=== PATIENT | female | born 1980 | race Caucasian/White ===

== ENCOUNTER 2016-09-12 17:04 | Emergency (ER) | payer OTHER ==
--- NOTE | 2016-09-12 18:48 | ED ---
General Adult HPI - General Chief complaint: Upper Respiratory Infection Stated complaint: congestion Time Seen by Provider: 09/12/16 18:26 Source: patient, RN notes reviewed Mode of arrival: ambulatory Limitations: no limitations - History of Present Illness Initial comments: This is a 36-year-old female who presents with cough, congestion and mild nausea Tuesday. Patient states she did have a fever of approximately 100 yesterday but denies any fever today. Patient denies any vomiting but admits to some nausea. Patient has had diminished appetite but has been keeping up with fluids. Patient states her cough is dry. Patient also admits to headache , but denies sore throat. Patient also admits to some right-sided ear pain 2 days. Patient also complains of feeling dizzy which she describes as "off balance". Patient states she has a history of anemia from endometriosis 5 years ago and her symptoms today feel similar to her symptoms when she was diagnosed with anemia. Patient denies any chance of being as she has had a hysterectomy. Patient denies any hematochezia, hematemesis, hematuria, dysuria. Patient states she's had one episode of diarrhea Tuesday and has not recurred. Patient also admits to some "tingling" in the left arm and around her lips. Patient also admits to feeling "weak" in the left arm but she has not had any trouble using the left upper extremity and has not had any trouble lifting objects. Patient states this has never happened to her before. Patient is not on any medication and denies any medical problems. Patient denies any recent shortness breath, chest pain, abdominal pain, radicular pain , neck pain, neck stiffness, back pain, numbness, or visual changes, or any other complaints. - Related Data Home Medications Medication Instructions Recorded Confirmed Zzz-Quil 5 ml PO HS PRN 09/12/16 09/12/16 Allergies Allergy/AdvReac Type Severity Reaction Status Date / Time fluconazole [From Diflucan] Allergy Rash/Hives Verified 09/12/16 18:54 Review of Systems ROS Statement: Those systems with pertinent positive or pertinent negative responses have been documented in the HPI. ROS Other: All systems not noted in ROS Statement are negative. Past Medical History Additional Past Medical History / Comment(s): anemia History of Any Multi-Drug Resistant Organisms: None Reported Past Surgical History: Hysterectomy Past Psychological History: No Psychological Hx Reported Smoking Status: Current every day smoker Past Alcohol Use History: None Reported Past Drug Use History: None Reported General Exam - General Exam Comments Initial Comments: General: The patient is awake and alert, in no distress, and does not appear acutely ill. Eye: Pupils are equal, round and reactive to light, extra-ocular movements are intact. No nystagmus. There is normal conjunctiva bilaterally. No signs of icterus. Ears: TMs pearly with intact cone of light bilaterally. Normal external ear canals. Nose: Nasal turbinates mildly erythematous but clear of drainage. Mouth and throat: There are moist mucous membranes. Neck: The neck is supple, there is no tenderness or JVD. Cardiovascular: There is a regular rate and rhythm. No murmur, rub or gallop is appreciated. Respiratory: Lungs are clear to auscultation, respirations are non-labored, breath sounds are equal. No wheezes, stridor, rales, or rhonchi. Gastrointestinal: Mild generalized discomfort. Soft, non-distended abdomen without masses or organomegaly noted. There is no rebound or guarding present. No CVA tenderness. Bowel sounds are unremarkable. Musculoskeletal: Normal ROM, no tenderness. Strength 5/5. Sensation intact. Radial Pulses equal bilaterally 2+. Capillary refill is normal at less than 2 seconds. Neurological: A&O x 3. CN II-XII intact, There are no obvious motor or sensory deficits. Coordination appears grossly intact. Speech is normal. Finger to nose testing intact. Skin: Skin is warm and dry and no rashes or lesions are noted. Psychiatric: Cooperative, appropriate mood & affect, normal judgment. Limitations: no limitations Course Vital Signs 09/12/16 09/12/16 17:28 20:32 Temperature 98.4 F 99.8 F H Pulse Rate 82 80 Respiratory 16 20 Rate Blood Pressure 108/81 121/56 O2 Sat by Pulse 98 98 Oximetry Medical Decision Making - Medical Decision Making This is a 36 year female presents with cough, congestion, nausea, dizziness 7 days. Patient is afebrile in the EC. On physical exam patient's strength is 5/ 5 in coordination is intact. Patient is neurologically intact. Moist mucous membranes. Clear to auscultation bilaterally. Dry cough present on exam. Patient is afebrile in the EC. Patient is answering all questions appropriately. Chest x-ray was done and reviewed showing: Normal chest. Reportedly Dr. Snider Labs were drawn and reviewed and came back within normal limits. Results are discussed with patient. Patient admits that her upper respiratory conditions have improved. Patient states after receiving fluids the tingling she was feeling in her arm and lips has improved. Discussed that these symptoms can also be related to anxiety and patient does admit to some increased stress from dental procedures in her life lately. Patient also states this feels similar to when she had a pinched nerve in her neck in the past. Patient denies any recent fall however. Discussed return parameters. Discussed close follow-up with her primary care physician or to return to the for any worsening symptoms or for any further concerns. Patient was receptive to this plan and patient will be discharged home. - Lab Data Result diagrams: 09/12/16 19:04 09/12/16 19:04 Lab Results 09/12/16 09/12/16 Range/Units 19:04 19:04 WBC 10.3 (3.8-10.6) k/uL RBC 4.91 (3.80-5.40) m/uL Hgb 15.1 (11.4-16.0) gm/dL Hct 45.0 (34.0-46.0) % MCV 91.6 (80.0-100.0) fL MCH 30.8 (25.0-35.0) pg MCHC 33.7 (31.0-37.0) g/dL RDW 11.9 (11.5-15.5) % Plt Count 198 (150-450) k/uL Neutrophils % 88 % Lymphocytes % 7 % Monocytes % 3 % Eosinophils % 0 % Basophils % 0 % Neutrophils # 9.1 H (1.3-7.7) k/uL Lymphocytes # 0.8 L (1.0-4.8) k/uL Monocytes # 0.3 (0-1.0) k/uL Eosinophils # 0.0 (0-0.7) k/uL Basophils # 0.0 (0-0.2) k/uL Sodium 140 (137-145) mmol/L Potassium 3.9 (3.5-5.1) mmol/L Chloride 106 (98-107) mmol/L Carbon Dioxide 22 (22-30) mmol/L Anion Gap 12 mmol/L BUN 7 (7-17) mg/dL Creatinine 0.60 (0.52-1.04) mg/dL Est GFR (MDRD) Af Amer >60 (>60 ml/min/1.73 sqM) Est GFR (MDRD) Non-Af >60 (>60 ml/min/1.73 sqM) Glucose 99 (74-99) mg/dL Calcium 9.6 (8.4-10.2) mg/dL Total Bilirubin 0.6 (0.2-1.3) mg/dL AST 21 (14-36) U/L ALT 43 (9-52) U/L Alkaline Phosphatase 65 (38-126) U/L Total Protein 6.9 (6.3-8.2) g/dL Albumin 4.5 (3.5-5.0) g/dL Disposition Clinical Impression: Upper respiratory infection, Paresthesia Disposition: HOME SELF-CARE Condition: Good Instructions: Upper Respiratory Infection (ED) Additional Instructions: Please continue to drink plenty of fluids. Please follow-up with family doctor in the next 2 days of symptoms have not improved. Please return to emergency room if the symptoms increase or worsen or for any other concerns. Referrals: Jared Bishop MD [Primary Care Provider] - 1-2 days Time of Disposition: 20:21
[2016-09-12] MEDS ORDERED: SODIUM CHLORIDE 0.9% 500 ML IV ONE (18:49)
--- NOTE | 2016-09-12 18:55 | XR ---
EXAMINATION TYPE: XR chest 2V DATE OF EXAM: 09/12/2016 6:51 PM COMPARISON: NONE HISTORY: Cough. Left arm tingling. TECHNIQUE: Frontal and lateral views of the chest are obtained. FINDINGS: Heart and mediastinum are normal. Lungs are clear. Diaphragm is normal. Bony thorax is int act. IMPRESSION: Normal chest.
[2016-09-12 19:31] LABS: Basophils % (A) 0 %; CH 32.2; CHCM 35.3; Eosinophils % (A) 0 %; HDW 2.54; HGB 15.1 gm/dL (11.4-16.0); Luc # (Auto) 0.07; Luc % (Auto) 1; Lymphocytes # (A) 0.8 k/uL (1.0-4.8); Lymphocytes % (A) 7 %; MCH 30.8 pg (25.0-35.0); MCHC 33.7 g/dL (31.0-37.0); MCV 91.6 fL (80.0-100.0); Mean Platelet Volume 8.5; Monocytes # (A) 0.3 k/uL (0-1.0); Monocytes % (A) 3 %; Neutrophils # (A) 9.1 k/uL (1.3-7.7); Neutrophils % (A) 88 %; RBC 4.91 m/uL (3.80-5.40); RDW 11.9 % (11.5-15.5); WBC 10.3 k/uL (3.8-10.6); WBC (Perox) 10.85
[2016-09-12 20:01] LABS: ALT 43 U/L (9-52); AST 21 U/L (14-36); Alkaline Phosphatase 65 U/L (38-126); Anion Gap 12 mmol/L; Blood Urea Nitrogen 7 mg/dL (7-17); Calcium 9.6 mg/dL (8.4-10.2); Carbon Dioxide 22 mmol/L (22-30); Chloride 106 mmol/L (98-107); Glucose 99 mg/dL (74-99); Non-African American GFR(MDRD) >60 (>60 ml/min/1.73 sqM); Potassium 3.9 mmol/L (3.5-5.1); Sodium 140 mmol/L (137-145); Total Bilirubin 0.6 mg/dL (0.2-1.3); Total Protein 6.9 g/dL (6.3-8.2)
[2016-09-12 20:33] VITALS: BP 121/56; PULSE 80; RESP 20; TEMP 99.8
--- NOTE | 2016-09-29 13:17 | ED ---
Medical Decision Making - Medical Decision Making An EKG was done at 17:41 on 09/12/2016 showing normal sinus rhythm with a ventricular rate of 87 bpm, AK interval of 110, QTC of 447 and QRS duration of 70. No acute ST changes. - Lab Data Result diagrams: 09/12/16 19:04 09/12/16 19:04 Lab Results 09/12/16 09/12/16 Range/Units 19:04 19:04 WBC 10.3 (3.8-10.6) k/uL RBC 4.91 (3.80-5.40) m/uL Hgb 15.1 (11.4-16.0) gm/dL Hct 45.0 (34.0-46.0) % MCV 91.6 (80.0-100.0) fL MCH 30.8 (25.0-35.0) pg MCHC 33.7 (31.0-37.0) g/dL RDW 11.9 (11.5-15.5) % Plt Count 198 (150-450) k/uL Neutrophils % 88 % Lymphocytes % 7 % Monocytes % 3 % Eosinophils % 0 % Basophils % 0 % Neutrophils # 9.1 H (1.3-7.7) k/uL Lymphocytes # 0.8 L (1.0-4.8) k/uL Monocytes # 0.3 (0-1.0) k/uL Eosinophils # 0.0 (0-0.7) k/uL Basophils # 0.0 (0-0.2) k/uL Sodium 140 (137-145) mmol/L Potassium 3.9 (3.5-5.1) mmol/L Chloride 106 (98-107) mmol/L Carbon Dioxide 22 (22-30) mmol/L Anion Gap 12 mmol/L BUN 7 (7-17) mg/dL Creatinine 0.60 (0.52-1.04) mg/dL Est GFR (MDRD) Af Amer >60 (>60 ml/min/1.73 sqM) Est GFR (MDRD) Non-Af >60 (>60 ml/min/1.73 sqM) Glucose 99 (74-99) mg/dL Calcium 9.6 (8.4-10.2) mg/dL Total Bilirubin 0.6 (0.2-1.3) mg/dL AST 21 (14-36) U/L ALT 43 (9-52) U/L Alkaline Phosphatase 65 (38-126) U/L Total Protein 6.9 (6.3-8.2) g/dL Albumin 4.5 (3.5-5.0) g/dL Disposition Clinical Impression: Upper respiratory infection, Paresthesia Disposition: HOME SELF-CARE Condition: Good Instructions: Upper Respiratory Infection (ED) Additional Instructions: Please continue to drink plenty of fluids. Please follow-up with family doctor in the next 2 days of symptoms have not improved. Please return to emergency room if the symptoms increase or worsen or for any other concerns. Referrals: Jared Bishop MD [Primary Care Provider] - 1-2 days
== END 2016-09-12 20:32 | disposition home or self-care (01) ==
LOC: EC 17:04
DX: J06.9 Acute upper respiratory infection, unspecified (principal); R20.2 Paresthesia of skin; R11.0 Nausea; R42 Dizziness and giddiness; Z88.3 Allergy status to other anti-infective agents; F17.200 Nicotine dependence, unspecified, uncomplicated
CPT/HCPCS: 36415; 71020; 80053; 85025; 93005; 99284

== ENCOUNTER → 2016-10-19 | Outpatient (CLI) | payer OTHER ==
--- NOTE | 2016-10-19 22:20 | MR ---
MRI of the brain with and without contrast HISTORY: Headaches. TECHNIQUE: T1-weighted sagittal, T2, FLAIR, and diffusion axial, postcontrast T1 axial and coronal vi ews of the brain are submitted. CONTRAST: 9 mL of MultiHance FINDINGS: There is no evidence of acute ischemia. The ventricles, basal cisterns, and sulci overlying the co nvexities are consistent with the patient's age. There is no mass effect or enhancing mass. Craniocervical junction maintained. Health turcica has a normal appearance. No cerebellopontine angle mass. WHITE MATTER: There are approximately 5 focal areas of abnormal signal seen within the white matter scattered bilat erally. All measure less than 5 mm. No callosal lesions. No lesion or appendicular to the ventricular system. No enhancing lesion. IMPRESSION: 1. No acute intracranial process. 2. Minimal nonspecific white matter changes can be seen with migraine headaches or hypertension. Othe r etiologies including demyelinating process, sarcoidosis, or remote microvascular ischemia not entir dipak excluded. Correlate clinically.
== END | disposition home or self-care (01) ==
LOC: RADMRIMAIN 18:20
PROVIDERS: ATTEND Family Medicine
DX: R90.82 White matter disease, unspecified (principal)
CPT/HCPCS: 70553; A9577

== ENCOUNTER → 2021-12-31 | Outpatient (CLI) | payer BC, OTHER ==
[2021-12-31 14:39] VITALS: BP 106/70; PULSE 85; RESP 18; TEMP 98.7
--- NOTE | 2021-12-31 15:13 | P.CON ---
Consult Note - . Consult date: 12/31/21 Assessment/Plan:: HISTORY OF PRESENT ILLNESS: 41 yr old female as a referral from Dr Nava presents today with chronic & severe cervical pain secondary to disc bulges, spinal stenosis, neuroforaminal narrowing, facet arthopathy and R C7 impingement for evaluation. Pain escalates as high as 9 /10 in intensity, is intermittent, sharp, achy and crampy in character with radiation of pain to the UEs, alternating from L to R. Pain is provoked with overhead reaching. Pain is relieved with medications (Motrin and Tylenol OTC), alternating ice & heat, massage at home, chiropractic treatments which were discontinued by provider due to cervical DDD, elevation of UEs and rest. Past Medical History / Comment(s): anemia Past Surgical History: Hysterectomy Social History: Current every day smoker. Denies ETOH abuse or illicit drug use. Family History: Non contributory All: Fluconazole Meds: See list REVIEW OF ORGAN SYSTEMS: CONSTITUTIONAL: No fevers or chills. No recent weight loss. HEENT: No visual acuity loss, eye pain, difficulties with hearing. No nosebleeds. No difficulty swallowing. RESPIRATORY: Denies any troubles with breathing or dyspnea on exertion. CARDIOVASCULAR: Denies any chest pain, palpitations, or recent heart attacks. GASTROINTESTINAL: Denies fatty food intolerance. Has change in bowel habits and gas bloat. GENITOURINARY: Denies any blood in urine. Has increased urinary frequency. NEUROLOGICAL: + numbness and tingling along the distal extremities. No seizure disorders or headaches. MUSCULOSKELETAL: + back pain SKIN: No skin cancer. No rash. PSYCHIATRIC: Denies current depression or suicidal tho ughts. ENDOCRINE: Denies current thyroid disorders. Denies any blood sugar glucose intolerance. HEME/LYMPHATIC: Denies any lumps and bumps around the neck. History of deep venous thrombosis. ALLERGY/IMMUNOLOGY: No immunoglobulin therapy. No immune deficiencies. BREAST: Denies current breast lumps, pain or nipple discharge. Physical Examinations : Constitutional : Cooperative , not in acute distress . HEENT: Neck supple. No Lymphadenopathy. Normal thyroid size . Eyes no ptosis , no icterus, no photophobia . Hearing intact. Normal oropharynx. No Thrush. Respiratory : Chest clear to auscultations bilaterally. No wheezing. No rhonchi. Cardiovascular : Regular rate and rhythm , S1 / S2. No S3 . No S4. Gastrointestinal : Abdomen soft. No tenderness. Bowel sounds x 4. No organomegaly . Genitourinary : Deferred. Neurologic : Cranial nerve II to XII intact. No focal neurological deficits. Psychiatric : alert & oriented x 3. Matching mood & appropriate affect. Judgment & insight intact. Lymphatic No Lymphadenopathy. Musculoskeletal : Cervical Spine Motor strength in the deltoid and biceps: Normal right side. Normal Left side Motor strength biceps and the wrist extensors: Normal right side . Normal left side Motor strength in the triceps muscle: Normal right side. Normal left side Deep tendon reflexes: Normal at the biceps. Normal at Brachioradialis. Normal at triceps Vertebral body tenderness to palpation Cervical facet loading test: positive bilaterally Spurling test: positive bilaterally Neck distraction test: positive bilaterally Keely sign: positive bilaterally Lumbar spine Motor strength lower extremities ,thigh and legs 5/5 Right side , 5/5 Left side Deep tendon reflexes : Normal Knee Jerk. Normal Ankle Jerk Vertebral body tenderness over Lumbar facet Loading Test: positive Right / positive Left Range of motion of the lumbar spine Flexion 30 degrees, extension 10 degrees Straight Leg Raise test: Left/ Right positive at degree Ankur test: positive right / positive left. Severe tenderness over the Sacroiliac joint on the Right / Left sides Gaenslen test: positive bilaterally Seated flexion test: positive bilaterally. Imaging: MRI of the cervical spine without contrast form 10/16/21 reviewed Assessment/ Plan : Cervical spondylosis, Cervical stenosis Recommendation of facet blocks of the medial branches BL C5-C6, C6-C7. May need a series of injections, up until RFA, for optimal pain relief. Risks, benefits of procedure discussed and patient verbalized understanding. Denies aspirin or anti- coagulant use or medical history of diabetes. All questions answered. I have spent greater than 50 minutes on patient care today. Dr Menendez was available by phone for the evaluation of this patient. The time was used to review the medical records including relevant urine studies and Prescription history (MAPs), review of the available imaging, evaluation and examination of the patient, coordination of care with the medical staff and if applicable referring physicians, as well as creation of the medical record PQRS Measure Charge Sheet Mode of Arrival: Ambulatory - Pain Location Bilateral Lower Neck Non-Pharmacological Interventions: Elevation, Heat, Ice, Massage, Stretching Pharmacological Interventions: PRN Medication, Topical Medication PQRS Narrative: Smoking Status Current every day smoker Blood Pressure 106/70 Pain Intensity [Bilateral 9 Lower Neck] Scale Used Numeric (1 - 10) Hx Alcohol Use () No Home Medications: Ambulatory Orders Zzz-Quil 5 ml PO HS PRN 09/12/16
== END ==
LOC: PNWHC3 13:59
PROVIDERS: ATTEND Specialist
DX: M47.812 Spondylosis without myelopathy or radiculopathy, cervical region (principal); M48.02 Spinal stenosis, cervical region; F17.200 Nicotine dependence, unspecified, uncomplicated; Z88.1 Allergy status to other antibiotic agents
CPT/HCPCS: 99211